=== PATIENT | male | born 1975 | race Hispanic/Latino ===

== ENCOUNTER 2018-01-22 08:22 | Emergency (ER) | payer OTHER ==
[2018-01-22 08:34] VITALS: RESP 20; TEMP 98.3; O2SAT 99
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
[2018-01-22] MEDS ORDERED: Oxycodone/Acetaminophen 5/325 mg Tab PO STA (10:57)
[2018-01-22] MEDS ORDERED: Oxycodone/Acetaminophen 5/325 mg Tab ONE (10:58)
--- NOTE | 2018-01-22 11:07 | CT ---
Date of service: 01/22/2018 PROCEDURE: CT HEAD WITHOUT CONTRAST. HISTORY: Vertigo COMPARISON: None available. TECHNIQUE: Axial computed tomography images were obtained through the head/brain without intravenous contrast. Radiation dose: Total exam DLP = 910.52 mGy-cm. This CT exam was performed using one or more of the following dose reduction techniques: Automated exposure control, adjustment of the mA and/or kV according to patient size, and/or use of iterative reconstruction technique. FINDINGS: HEMORRHAGE: No intracranial hemorrhage. BRAIN: Normal grant-white matter differentiation and density are appreciated throughout the cerebrum and cerebellum with the brainstem appearing unremarkable as well. There is no mass effect. There is no suspicious extra-axial fluid collection and the midline brain anatomy appears diffusely unremarkable. VENTRICLES: Unremarkable. No hydrocephalus. CALVARIUM: Unremarkable. PARANASAL SINUSES: Mild multifocal ethmoid sinusitis is appreciated bilaterally. MASTOID AIR CELLS: Unremarkable as visualized. No inflammatory changes. OTHER FINDINGS: None. IMPRESSION: 1. Unremarkable CT head intracranially. 2. Limited, incidental bilateral ethmoid sinusitis identified.
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
[2018-01-22 13:06] VITALS: BP 127/80; PULSE 69
== END 2018-01-22 13:06 | disposition home or self-care (01) ==
LOC: H.ER 08:22
DX: S13.9XXA Sprain of joints and ligaments of unspecified parts of neck, initial encounter (principal); S09.90XA Unspecified injury of head, initial encounter; V43.62XA Car passenger injured in collision with other type car in traffic accident, initial encounter; Y92.410 Unspecified street and highway as the place of occurrence of the external cause; J32.2 Chronic ethmoidal sinusitis; J84.10 Pulmonary fibrosis, unspecified